=== PATIENT | male | born 1985 ===

== ENCOUNTER 2021-01-22 09:41 | Inpatient (IN) ==
[2021-01-22] MEDS ORDERED: ceFAZolin 1,000 MG in SYRINGE 1 EACH IV ONE (10:20)
[2021-01-22] MEDS ORDERED: ceFAZolin 1,000 MG VIAL ONE (10:29)
[2021-01-22] MEDS ORDERED: SODIUM CHLORIDE 0.9% 1,000 ML IV SCH (10:30)
[2021-01-22] MEDS ORDERED: SODIUM CHLORIDE 0.9% 100 ML IV ONE (10:30)
[2021-01-22] MEDS ORDERED: BUPIVACAINE MPF 0.25% 30 ML VIAL ONE (11:26)
[2021-01-22] MEDS ORDERED: LIDOCAINE 1%/EPI INJ 20 ML VIAL ONE (11:26)
[2021-01-22] MEDS ORDERED: fentaNYL 100 MCG/2 ML VIAL ONE (11:45)
[2021-01-22] MEDS ORDERED: MIDAZOLAM 2 MG/2 ML VIAL ONE (11:46)
[2021-01-22] MEDS ORDERED: LIDOCAINE 2% 5 ML VIAL ONE (11:47)
[2021-01-22] MEDS ORDERED: propofoL 200 MG/20 ML VIAL IV ONE (11:47)
[2021-01-22] MEDS ORDERED: KETOROLAC 30 MG/1 ML VIAL ONE (12:15)
[2021-01-22] MEDS: HYDROmorphone 2 MG/1 ML VIAL IV PRN ×6 (12:25→19:33)
[2021-01-22] MEDS ORDERED: ONDANSETRON 4 MG/2 ML VIAL ONE (12:27)
[2021-01-22] MEDS ORDERED: HYDROmorphone 2 MG/1 ML VIAL ONE (12:27)
[2021-01-22] MEDS ORDERED: MEPERIDINE 25 MG/1 ML VIAL IV PRN (12:41)
[2021-01-22] MEDS ORDERED: ONDANSETRON 4 MG/2 ML VIAL IV PRN ×2 (12:41→12:49)
[2021-01-22] MEDS ORDERED: ALBUTEROL/IPRATROPIUM 3 ML NEB RESP TX PRN (12:49)
[2021-01-22] MEDS ORDERED: ACETAMINOPHEN 325 MG TABLET PO PRN (12:49)
[2021-01-22] MEDS ORDERED: KETOROLAC 15 MG/1 ML VIAL IV PRN (12:49)
[2021-01-22] MEDS: SODIUM CHLORIDE 0.9% 1,000 ML IV SCH ×2 (14:42→19:33)
[2021-01-22] MEDS: ceFAZolin 2,000 MG in PREMIX 1 EACH IV SCH (17:41)
[2021-01-22] MEDS: ALBUTEROL/IPRATROPIUM 3 ML NEB RESP TX SCH (20:12)
[2021-01-23] MEDS: ALBUTEROL/IPRATROPIUM 3 ML NEB RESP TX SCH ×4 (00:56→19:19)
[2021-01-23] MEDS: ceFAZolin 2,000 MG in PREMIX 1 EACH IV SCH (01:20)
[2021-01-23] MEDS: HYDROmorphone 2 MG/1 ML VIAL IV PRN ×4 (01:23→20:02)
[2021-01-23] MEDS: SODIUM CHLORIDE 0.9% 1,000 ML IV SCH ×3 (04:41→16:39)
[2021-01-23 06:19] LABS: Basophils % 0.1 % (0.0-0.8); Eosinophils % 0.2 % (0.00-10.9); Hematocrit 42.7 VOL% (42.0-52.0); Hemoglobin 14.2 GM/DL (14.0-18.0); Immature Granulocytes % 0.3 %; Immature Granulocytes Absolute 0.03 #; Lymphocytes # 1.3 10*3/uL (1.4-4.0); Lymphocytes % 12.4 % (21.2-54.2); Mean Corpuscular HGB Conc 33.3 GM/DL (32-36); Mean Platelet Volume 10.6 FL (9.6-12.0); Monocytes % 6.7 % (1.7-12.7); Neutrophils % 80.3 % (38.7-73.9); Platelet Count 243 T/CUMM (130-400); Red Blood Count 4.85 MC/CUMM (3.8-5.5); Red Cell Distribution Width 12.3 % (9.3-17.3); White Blood Count 10.4 T/CUMM (4-12)
[2021-01-23] MEDS ORDERED: BACITRACIN OINT 0.9 GM PACK TOP ONE (06:45)
[2021-01-23] MEDS: PANTOPRAZOLE 40 MG TABLET PO SCH (08:04)
[2021-01-24] MEDS: HYDROmorphone 2 MG/1 ML VIAL IV PRN ×6 (00:37→19:48)
[2021-01-24] MEDS: ALBUTEROL/IPRATROPIUM 3 ML NEB RESP TX SCH ×4 (00:46→18:57)
[2021-01-24] MEDS: SODIUM CHLORIDE 0.9% 1,000 ML IV SCH ×3 (06:34→21:04)
[2021-01-24] MEDS: PANTOPRAZOLE 40 MG TABLET PO SCH (08:04)
[2021-01-25] MEDS: HYDROmorphone 2 MG/1 ML VIAL IV PRN ×7 (00:09→20:22)
[2021-01-25] MEDS: ALBUTEROL/IPRATROPIUM 3 ML NEB RESP TX SCH ×4 (03:13→19:48)
[2021-01-25] MEDS: SODIUM CHLORIDE 0.9% 1,000 ML IV SCH ×2 (06:34→23:42)
[2021-01-25] MEDS: PANTOPRAZOLE 40 MG TABLET PO SCH (08:46)
[2021-01-25] MEDS: oxyCODONE/ACETAMINOPHEN 5-325 MG TABLET PO PRN ×2 (08:47→22:43)
[2021-01-25] MEDS: KETOROLAC 15 MG/1 ML VIAL IV SCH ×2 (17:27→23:45)
[2021-01-25] MEDS: diphenhydrAMINE CAP 25 MG CAPSULE PO PRN (17:33)
[2021-01-26] MEDS: ALBUTEROL/IPRATROPIUM 3 ML NEB RESP TX SCH ×4 (00:52→19:00)
[2021-01-26] MEDS: SODIUM CHLORIDE 0.9% 1,000 ML IV SCH ×3 (01:57→23:41)
[2021-01-26] MEDS: HYDROmorphone 2 MG/1 ML VIAL IV PRN ×2 (03:48→11:06)
[2021-01-26] MEDS: KETOROLAC 15 MG/1 ML VIAL IV SCH ×4 (05:40→23:38)
[2021-01-26 07:32] LABS: Basophils % 0.3 % (0.0-0.8); Eosinophils # 0.2 10*3/uL (0.0-0.87); Hematocrit 41.5 VOL% (42.0-52.0); Hemoglobin 14.1 GM/DL (14.0-18.0); Immature Granulocytes % 0.4 %; Immature Granulocytes Absolute 0.03 #; Lymphocytes # 0.8 10*3/uL (1.4-4.0); Lymphocytes % 10.7 % (21.2-54.2); Mean Corpuscular Volume 86.3 FL (87-102); Mean Platelet Volume 9.7 FL (9.6-12.0); Monocytes % 8.1 % (1.7-12.7); Neutrophils % 78.5 % (38.7-73.9); Platelet Count 191 T/CUMM (130-400); Red Blood Count 4.81 MC/CUMM (3.8-5.5); Red Cell Distribution Width 12.7 % (9.3-17.3); White Blood Count 7.9 T/CUMM (4-12)
[2021-01-26 07:52] LABS: Calcium 8.9 MG/DL (8.5-10.1); Osmolality,Calculated 268.1 MOS/KG (273-304)
[2021-01-26] MEDS: PANTOPRAZOLE 40 MG TABLET PO SCH (09:09)
[2021-01-26] MEDS: oxyCODONE/ACETAMINOPHEN 5-325 MG TABLET PO PRN ×3 (09:10→20:22)
[2021-01-26] MEDS: BISACODYL 5 MG TABLET PO PRN ×2 (10:24→20:37)
[2021-01-26] MEDS: diphenhydrAMINE CAP 25 MG CAPSULE PO PRN (17:33)
[2021-01-27] MEDS: SODIUM CHLORIDE 0.9% 1,000 ML IV SCH ×4 (01:35→23:09)
[2021-01-27] MEDS: ALBUTEROL/IPRATROPIUM 3 ML NEB RESP TX SCH ×4 (02:02→19:28)
[2021-01-27] MEDS: oxyCODONE/ACETAMINOPHEN 5-325 MG TABLET PO PRN ×4 (02:10→21:28)
[2021-01-27] MEDS: KETOROLAC 15 MG/1 ML VIAL IV SCH ×4 (05:23→23:07)
[2021-01-27] MEDS: BISACODYL 5 MG TABLET PO PRN (05:23)
[2021-01-27] MEDS: PANTOPRAZOLE 40 MG TABLET PO SCH (09:20)
[2021-01-27] MEDS: CETIRIZINE 10 MG TABLET PO SCH (10:57)
[2021-01-28] MEDS: ALBUTEROL/IPRATROPIUM 3 ML NEB RESP TX SCH ×4 (00:45→19:15)
[2021-01-28] MEDS: SODIUM CHLORIDE 0.9% 1,000 ML IV SCH ×2 (03:59→21:16)
[2021-01-28] MEDS: KETOROLAC 15 MG/1 ML VIAL IV SCH ×3 (05:08→17:42)
[2021-01-28] MEDS: oxyCODONE/ACETAMINOPHEN 5-325 MG TABLET PO PRN ×5 (06:06→22:05)
[2021-01-28] MEDS: PANTOPRAZOLE 40 MG TABLET PO SCH (09:26)
[2021-01-28] MEDS: CETIRIZINE 10 MG TABLET PO SCH (09:26)
[2021-01-29] MEDS: KETOROLAC 15 MG/1 ML VIAL IV SCH ×5 (00:11→23:09)
[2021-01-29] MEDS: ALBUTEROL/IPRATROPIUM 3 ML NEB RESP TX SCH ×4 (00:23→19:30)
[2021-01-29] MEDS: HYDROmorphone 2 MG/1 ML VIAL IV PRN ×3 (05:08→15:56)
[2021-01-29 05:36] LABS: Basophils % 0.5 % (0.0-0.8); Eosinophils # 0.2 10*3/uL (0.0-0.87); Eosinophils % 3.7 % (0.00-10.9); Hematocrit 41.4 VOL% (42.0-52.0); Hemoglobin 13.7 GM/DL (14.0-18.0); Immature Granulocytes % 0.3 %; Immature Granulocytes Absolute 0.02 #; Lymphocytes # 1.3 10*3/uL (1.4-4.0); Lymphocytes % 21.6 % (21.2-54.2); Mean Corpuscular HGB Conc 33.1 GM/DL (32-36); Mean Corpuscular Volume 87.5 FL (87-102); Mean Platelet Volume 9.5 FL (9.6-12.0); Monocytes % 9.6 % (1.7-12.7); Neutrophils % 64.3 % (38.7-73.9); Platelet Count 217 T/CUMM (130-400); Red Blood Count 4.73 MC/CUMM (3.8-5.5); Red Cell Distribution Width 12.8 % (9.3-17.3)
[2021-01-29 05:44] LABS: Calcium 9.4 MG/DL (8.5-10.1); Osmolality,Calculated 272.8 MOS/KG (273-304); Potassium 4.2 MMOL/L (3.5-5.1)
[2021-01-29] MEDS: oxyCODONE/ACETAMINOPHEN 5-325 MG TABLET PO PRN ×3 (06:21→21:19)
[2021-01-29] MEDS: CETIRIZINE 10 MG TABLET PO SCH (08:50)
[2021-01-29] MEDS: PANTOPRAZOLE 40 MG TABLET PO SCH (08:50)
[2021-01-29] MEDS: SODIUM CHLORIDE 0.9% 1,000 ML IV SCH ×2 (08:54→13:45)
[2021-01-29] MEDS: BISACODYL 5 MG TABLET PO PRN (09:14)
[2021-01-30] MEDS: ALBUTEROL/IPRATROPIUM 3 ML NEB RESP TX SCH ×2 (00:35→07:22)
[2021-01-30] MEDS: oxyCODONE/ACETAMINOPHEN 5-325 MG TABLET PO PRN ×2 (05:09→09:14)
[2021-01-30] MEDS: KETOROLAC 15 MG/1 ML VIAL IV SCH ×2 (06:04→11:18)
[2021-01-30 07:28] VITALS: BP 115/77
[2021-01-30] MEDS: PANTOPRAZOLE 40 MG TABLET PO SCH (08:27)
[2021-01-30] MEDS: CETIRIZINE 10 MG TABLET PO SCH (08:27)
== END 2021-01-30 11:34 | disposition home or self-care (01) | DRG 201 ==
LOC: N.ED 09:41 → N.3E 12:00
PROVIDERS: ADMIT Surgery; ATTEND Surgery

== ENCOUNTER 2021-03-08 09:50 | Inpatient (IN) ==
[2021-03-08] MEDS ORDERED: BISACODYL 5 MG TABLET PO PRN (10:01)
[2021-03-08] MEDS ORDERED: ACETAMINOPHEN 325 MG TABLET PO PRN (10:01)
[2021-03-08] MEDS ORDERED: ALBUTEROL/IPRATROPIUM 3 ML NEB RESP TX PRN (10:01)
[2021-03-08] MEDS ORDERED: ONDANSETRON 4 MG/2 ML VIAL IV PRN ×2 (10:01→16:06)
[2021-03-08] MEDS ORDERED: KETOROLAC 15 MG/1 ML VIAL IV PRN (10:01)
[2021-03-08 12:50] LABS: Basophils % 0.3 % (0.0-0.8); Eosinophils # 0.1 10*3/uL (0.0-0.87); Hematocrit 45.9 VOL% (42.0-52.0); Hemoglobin 15.8 GM/DL (14.0-18.0); Immature Granulocytes % 0.1 %; Immature Granulocytes Absolute 0.01 #; Lymphocytes # 1.5 10*3/uL (1.4-4.0); Lymphocytes % 22.4 % (21.2-54.2); Mean Corpuscular HGB Conc 34.4 GM/DL (32-36); Mean Corpuscular Volume 85.2 FL (87-102); Mean Platelet Volume 10.1 FL (9.6-12.0); Monocytes % 6.9 % (1.7-12.7); Neutrophils % 69.3 % (38.7-73.9); Platelet Count 242 T/CUMM (130-400); Red Blood Count 5.39 MC/CUMM (3.8-5.5); Red Cell Distribution Width 12.9 % (9.3-17.3); White Blood Count 6.8 T/CUMM (4-12)
[2021-03-08 13:09] LABS: Osmolality,Calculated 276.4 MOS/KG (273-304)
[2021-03-08] MEDS: LACTATED RINGERS 1,000 ML IV SCH ×3 (13:17→23:33)
[2021-03-08] MEDS ORDERED: ROCURONIUM 50 MG/5 ML VIAL IV ONE (13:47)
[2021-03-08] MEDS ORDERED: fentaNYL 100 MCG/2 ML VIAL ONE (13:47)
[2021-03-08] MEDS ORDERED: LIDOCAINE 2% 5 ML VIAL ONE (13:47)
[2021-03-08] MEDS ORDERED: propofoL 200 MG/20 ML VIAL IV ONE (13:47)
[2021-03-08] MEDS ORDERED: MIDAZOLAM 2 MG/2 ML VIAL ONE (13:47)
[2021-03-08] MEDS ORDERED: SUCCINYLCHOLINE 200 MG/10 ML VIAL ONE (13:51)
[2021-03-08] MEDS ORDERED: TALC INTRAPLEURAL POWDER 3 GM VIAL INTRAPLEUR ONE ×2 (13:51→14:55)
[2021-03-08] MEDS ORDERED: LACTATED RINGERS 1,000 ML IV SCH (14:30)
[2021-03-08] MEDS ORDERED: ONDANSETRON 4 MG/2 ML VIAL ONE (15:13)
[2021-03-08] MEDS ORDERED: DEXAMETHASONE 4 MG/1 ML VIAL ONE (15:13)
[2021-03-08] MEDS ORDERED: SUGAMMADEX 200 MG/2 ML VIAL IV ONE (15:16)
[2021-03-08] MEDS: ALBUTEROL/IPRATROPIUM 3 ML NEB RESP TX SCH ×2 (15:24→20:45)
[2021-03-08] MEDS ORDERED: MEPERIDINE 25 MG/1 ML VIAL ONE (15:57)
[2021-03-08] MEDS ORDERED: MEPERIDINE 25 MG/1 ML VIAL IV PRN (16:06)
[2021-03-08] MEDS: HYDROmorphone 2 MG/1 ML VIAL IV PRN ×4 (16:10→21:08)
[2021-03-08] MEDS ORDERED: SEVOFLURANE 1 UNIT/15 MINUTE INH ONE (16:13)
[2021-03-08] MEDS: KETOROLAC 10 MG TABLET PO SCH (17:41)
[2021-03-09] MEDS: KETOROLAC 10 MG TABLET PO SCH ×4 (00:01→17:53)
[2021-03-09] MEDS: ALBUTEROL/IPRATROPIUM 3 ML NEB RESP TX SCH ×4 (00:01→20:10)
[2021-03-09] MEDS: oxyCODONE/ACETAMINOPHEN 5-325 MG TABLET PO PRN ×4 (01:17→22:23)
[2021-03-09] MEDS: HYDROmorphone 2 MG/1 ML VIAL IV PRN ×3 (03:06→20:41)
[2021-03-09] MEDS: PANTOPRAZOLE 40 MG TABLET PO SCH (09:40)
[2021-03-10] MEDS: KETOROLAC 10 MG TABLET PO SCH ×4 (00:32→18:08)
[2021-03-10] MEDS: ALBUTEROL/IPRATROPIUM 3 ML NEB RESP TX SCH ×5 (01:10→23:55)
[2021-03-10] MEDS: HYDROmorphone 2 MG/1 ML VIAL IV PRN ×5 (02:30→22:00)
[2021-03-10] MEDS: oxyCODONE/ACETAMINOPHEN 5-325 MG TABLET PO PRN ×3 (04:13→20:03)
[2021-03-10] MEDS: PANTOPRAZOLE 40 MG TABLET PO SCH (10:08)
[2021-03-11] MEDS: KETOROLAC 10 MG TABLET PO SCH ×3 (00:12→12:30)
[2021-03-11] MEDS: oxyCODONE/ACETAMINOPHEN 5-325 MG TABLET PO PRN ×3 (03:41→15:11)
[2021-03-11] MEDS: HYDROmorphone 2 MG/1 ML VIAL IV PRN (07:10)
[2021-03-11] MEDS: ALBUTEROL/IPRATROPIUM 3 ML NEB RESP TX SCH ×2 (07:25→13:30)
[2021-03-11] MEDS: PANTOPRAZOLE 40 MG TABLET PO SCH (11:01)
[2021-03-11 11:52] VITALS: BP 140/85
== END 2021-03-11 15:47 | disposition home or self-care (01) | DRG 168 ==
LOC: N.3E 11:13
PROVIDERS: ADMIT Surgery; ATTEND Surgery